=== PATIENT | male | born 1985 | race Two or more races ===

== ENCOUNTER 2017-07-04 16:06 | Observation (INO) | payer SELFPAY ==
[~2017-07-04] VITALS: Ht 182.9 cm; Wt 62.1 kg
[2017-07-04 20:49] LABS: BASOPHIL (%) 0.8 % (0-1); EOSINOPHIL (%) 3.4 % (0-5); EOSINOPHIL COUNT 0.2 K/uL (0-0.3); HEMATOCRIT 45.9 % (38.0-50.0); HEMOGLOBIN 15.3 G/DL (12.5-16.6); IMMATURE GRANULOCYTE (%) 0.2 % (0.0-0.7); LYMPHOCYTE COUNT 2.3 K/uL (1.0-2.8); MCH 29.7 PG (29.0-34.0); MCHC 33.3 G/DL (30.0-36.0); MCV 89.1 FL (86-99); MONOCYTE (%) 9.1 % (3-12); MONOCYTE COUNT 0.5 K/uL (0-0.8); NEUTROPHIL (%) 43.5 % (45-76); NEUTROPHIL COUNT 2.3 K/uL (1.8-6.4); PLATELET COUNT 287 K/uL (156-360); RBC DIS.WIDTH-CV 12.7 % (11.8-14.6); RBC DIS.WIDTH-SD 42.2 % (39-53); RED BLOOD COUNT 5.15 M/uL (4.00-5.50); WHITE BLOOD COUNT 5.3 K/uL (4.1-10.2)
[2017-07-04 21:06] LABS: ALBUMIN 4.2 g/dL (3.2-4.8)
[2017-07-04 21:07] LABS: CHLORIDE 106 mEq/L (99-109); SODIUM 140 mEq/L (136-147)
[2017-07-04 21:09] LABS: GLUCOSE 100 mg/dL (70-99)
[2017-07-04 21:11] LABS: TOTAL BILIRUBIN 0.8 mg/dL (0.0-1.0)
[2017-07-04 21:12] LABS: ALKALINE PHOSPHATASE 48 IU/L (3-129)
[2017-07-04 21:13] LABS: GFR ESTIMATE (CALCULATED) > 59 mL/min/ (58.99-99999)
[2017-07-04 21:14] LABS: AST (GOT) 19 IU/L (2-34); UREA NITROGEN (BUN) 8 mg/dL (9-23)
[2017-07-04 21:15] LABS: ALT (GPT) 18 IU/L (3-49)
[2017-07-04 21:16] LABS: LIPASE 258 U/L (1.0-51.0)
[2017-07-04 21:50] LABS: AMYLASE 227 IU/L (1-118)
[2017-07-04] MEDS ORDERED: ADULT MULTIVI200 MCG PO (22:31)
[2017-07-04] MEDS ORDERED: ZOFRAN ODT4 MG PO (22:46)
[2017-07-04 23:05] VITALS: BP 108/56
== END 2017-07-04 23:06 | disposition left against medical advice (07) ==
LOC: EXP 16:06 → EME 16:06 → EDOF 22:22 → ENRESERV 22:25 → CANRESERV 23:03 → ENRESERV 23:03 → EDOF 23:06
PROVIDERS: Physician Assistant
DX: K85.90 Acute pancreatitis without necrosis or infection, unspecified (principal); F17.200 Nicotine dependence, unspecified, uncomplicated; K40.90 Unilateral inguinal hernia, without obstruction or gangrene, not specified as recurrent; N50.819 Testicular pain, unspecified; N50.89 Other specified disorders of the male genital organs
CPT/HCPCS: 74177; 76705; 76870; 80053; 82150; 83690; 85025; 99281; 99285; G0378